=== PATIENT | female | born 1965 | race Caucasian/White ===

== ENCOUNTER → 2016-08-04 | Outpatient (CLI) | payer OTHER ==
[~2016-08-04] MED LIST: ASPIRIN EC81 MG PO; BENAZEPRIL HYDR20 MG PO; CIPRO 500MG TA500 MG PO; CLOPIDOGREL75 M2 PO; CRESTOR20 MG PO; ESOMEPRAZOLE SO40 MG PO; IMDUR 30MG. TAB30 MG PO; INVOKANA300 MG PO; LEVEMIR100 U/ML SC; MAXZIDE 25 MG-31 TAB PO; METFORMIN HCL1000 MG PO; NEURONTIN 300M300 MG PO; NOVOLOG MIX 70/10 M1 SC; NOVOLOG100 U/ML SC; PERCOCET 5/3251 EACH PO; PHENERGAN 25MG.25 M1 PO; PLAVIX 75MG TAB75 MG PO; PROTONIX 40MG T40 MG PO; SYNJARDY; WELCHOL625 MG PO; ZOFRAN4 MG PO
--- NOTE | 2016-08-04 10:09 | RADIOLOGY REPORT PS360 ---
WRIST-3 VIEWS-RT HISTORY: Pain with decreased range of motion RT WRIST PAIN ORDERING PHYSICIAN: YOANNA Livingston PATIENT AGE: 50 years COMPARISON: None FINDINGS: No fracture or dislocation. No lytic or blastic change. There is normal mineralization.. The space between the scaphoid and lunate is slightly widened and may be seen with scapholunate ligamentous injury. No other significant anomalies are evident.. IMPRESSION: Mildly widened scapholunate space which may be seen with scapholunate ligamentous injury otherwise negative
== END ==
LOC: RAD 09:41
DX: M25.531 Pain in right wrist (principal)

== ENCOUNTER → 2017-02-24 | Outpatient (CLI) | payer OTHER ==
--- NOTE | 2017-03-02 11:15 | RADIOLOGY REPORT PS360 ---
DIG MAMM-SCREEN NILDA W/CAD CAD Screening ORDERING PHYSICIAN : Sweetie Medina MD PATIENT AGE: 51 years GENDER: Female COMPARISON: Previous mammograms: June 2006, February 2012, INDICATION: Routine screening 51-year-old taking estrogen. No new complaints. Noncontributory family history. TECHNIQUE: Standard CC and MLO images were obtained. R2 CAD reviewed. Additional CC profile view included FINDINGS: Moderately dense breast tissue upper-outer quadrant both breasts. No dominant mass nor suspicious calcifications. No significant architectural distortion. Mild asymmetry is similar to previous study. No suspicious new findings. Noted discrete evidence of malignancy radiographically but annual follow-up would be encouraged recommended &. IMPRESSION: Stable bilateral mammogram. Moderately dense breast with no significant new findings. Bilateral follow-up in one year recommended and encouraged BI-RADS CATEGORY: 2_Benign RECOMMENDED FOLLOWUP: 12M 12 MONTH FOLLOW-UP (A letter has been sent to the patient regarding results of the study.)
== END ==
LOC: RAD 09:30
DX: Z12.31 Encounter for screening mammogram for malignant neoplasm of breast (principal)
CPT/HCPCS: G0202